=== PATIENT | female | born 1950 | race Caucasian/White ===

== ENCOUNTER → 2021-08-01 | Outpatient (CLI) | payer MEDICARE | END | disposition home or self-care (01) | LOC: LAB SHORT 11:40 → LAB 11:40 | DX: R30.9 Painful micturition, unspecified (principal) | CPT/HCPCS: 87077; 87086; 87186 ==

== ENCOUNTER → 2022-07-25 | Outpatient (CLI) | payer MEDICARE | LOC: LAB 17:27 → LAB SHORT 17:27 | DX: R30.0 Dysuria (principal) | CPT/HCPCS: 87077; 87086; 87186 ==

== ENCOUNTER → 2023-02-27 | Outpatient (CLI) | payer MEDICARE ==
[2023-02-27 15:07] LABS: Source, Urine Clean Catch
[2023-02-27 18:31] LABS: Appearance, Urine Hazy (Clear); Bilirubin, Urine Neg (Neg); Blood, Urine Neg (Neg); Color, Urine Yellow (P-Yellow); Glucose Qualitative, Urine 4+ (Neg); Ketones, Urine Neg (Neg); Leukocyte Esterase, Urine 1+ (Neg); Nitrite, Urine Pos (Neg); Protein, Urine 1+ (Neg); Specific Gravity, Urine 1.015 (1.003-1.022); Urobilinogen, Urine NORM (Normal)
[2023-02-27 19:31] LABS: Bacteria Many /hpf; Red Blood Cells, Urine 0-2 /hpf (0-2); Squamous Epithelial Cells Few /hpf (Few)
== END ==
LOC: LAB 13:46 → LAB SHORT 13:46
PROVIDERS: Student in an Organized Health Care Education/Training Program
DX: E11.42 Type 2 diabetes mellitus with diabetic polyneuropathy (principal)
CPT/HCPCS: 81001; 82043

== ENCOUNTER 2023-03-31 15:57 | Emergency (ER) | payer MEDICARE ==
[~2023-03-31] VITALS: Ht 152.4 cm; Wt 77.1 kg
[2023-03-31 17:00] LABS: Base Excess Venous -5.1 mmol/L; Bicarbonate Venous 20.5 mmol/L (24.0-30.0); PCO2 Venous 39.1 mmHg (38-42); pH Blood Venous 7.33 (7.34-7.37)
[2023-03-31 17:03] LABS: BASOPHILS ABSOLUTE AUTO 0.03 K/mm3 (0.00-0.23); BASOPHILS PERCENT AUTO 0 % (0-2); EOSINOPHILS ABSOLUTE AUTO 0.09 K/mm3 (0.00-0.68); EOSINOPHILS PERCENT AUTO 1 % (0-6); Hematocrit 35.9 % (33.0-51.0); Hemoglobin 12.2 g/dL (11.5-16.0); IMMATURE GRAN ABSOLUTE AUTO 0.02 K/mm3 (0.00-0.10); IMMATURE GRAN PERCENT AUTO 0 % (0-1); LYMPHOCYTES ABSOLUTE AUTO 1.89 K/mm3 (0.84-5.20); LYMPHOCYTES PERCENT AUTO 24 % (21-46); MONOCYTES ABSOLUTE AUTO 0.91 K/mm3 (0.16-1.47); MONOCYTES PERCENT AUTO 11 % (4-13); Mean Corpuscular HGB 31.3 pg (26.0-34.0); Mean Corpuscular Volume 92 fL (80-100); Mean Platelet Volume 10.5 fL (9.1-12.4); NEUTROPHILS ABSOLUTE AUTO 5.01 K/mm3 (1.96-9.15); NEUTROPHILS PERCENT AUTO 63 % (41-73); Platelet Count 240 K/mm3 (150-400); RDW Coefficient Variation 13.2 % (11.7-14.2); RDW Standard Deviation 44.5 fL (35.1-46.3); White Blood Cell Count 7.95 K/mm3 (4.00-11.30)
[2023-03-31] MEDS ORDERED: EZETIMIBE10 M6 PO (17:27)
[2023-03-31] MEDS ORDERED: METOPROLOL SUCC25 MG (17:28)
[2023-03-31] MEDS ORDERED: METF500 PO (17:28)
[2023-03-31] MEDS ORDERED: LIPITOR80 MG PO (17:28)
[2023-03-31] MEDS ORDERED: Neurontin800 MG PO (17:28)
[2023-03-31] MEDS ORDERED: OMEPRAZOLE MAGN20 M1 PO (17:29)
[2023-03-31] MEDS ORDERED: FEROSUL325 M1 PO (17:29)
[2023-03-31] MEDS ORDERED: HYDHCL25 (17:29)
[2023-03-31] MEDS ORDERED: GLIP5 PO (17:30)
[2023-03-31] MEDS ORDERED: FENO160 PO (17:30)
[2023-03-31 17:38] LABS: Albumin, Blood 3.7 g/dL (3.4-5.0); Albumin/Globulin Ratio 0.8 (0.8-1.8); Bilirubin, Total 0.5 mg/dL (0.1-1.0); Bun/Creatinine Ratio 25.4 (12.0-20.0); Calcium, Blood 9.4 mg/dL (8.5-10.1); Creatinine, Blood 1.3 mg/dL (0.40-1.00); Globulin, Blood 4.6 g/dL (2.2-4.0); Potassium, Blood 5.1 mmol/L (3.5-5.5); Total Protein, Blood 8.3 g/dL (6.4-8.2)
[2023-03-31 18:02] LABS: Source, Urine Clean Catch
[2023-03-31 18:08] LABS: Bilirubin, Urine Neg (Neg); Blood, Urine 2+ (Neg); Color, Urine Yellow (P-Yellow); Glucose Qualitative, Urine 4+ (Neg); Ketones, Urine Neg (Neg); Leukocyte Esterase, Urine 2+ (Neg); Nitrite, Urine Neg (Neg); Protein, Urine 2+ (Neg); Specific Gravity, Urine 1.015 (1.003-1.022); Urobilinogen, Urine NORM (Normal)
[2023-03-31 18:17] LABS: Appearance, Urine Hazy (Clear)
[2023-03-31 18:18] LABS: Bacteria Many /hpf; Red Blood Cells, Urine 0-2 /hpf (0-2); Squamous Epithelial Cells Rare /hpf (Few); White Blood Cells, Urine 50-100 /hpf (0-5)
[2023-03-31] MEDS ORDERED: CEPH500 PO (21:11)
[2023-03-31 22:00] VITALS: BP 141/91
== END 2023-03-31 22:06 | disposition home or self-care (01) ==
LOC: ER 15:57
PROVIDERS: Physician Assistant
DX: E11.65 Type 2 diabetes mellitus with hyperglycemia (principal); N39.0 Urinary tract infection, site not specified; Z79.84 Long term (current) use of oral hypoglycemic drugs; Z79.899 Other long term (current) drug therapy; Z88.2 Allergy status to sulfonamides; Z88.8 Allergy status to other drugs, medicaments and biological substances
CPT/HCPCS: 80053; 81001; 82803; 82947; 85025; 87077; 87086; 87186; 96360; 99283-25; A9270; J7030

== ENCOUNTER → 2023-09-24 | Outpatient (CLI) | payer MEDICARE ==
[~2023-09-24] MED LIST: CEPH500 PO; EZETIMIBE10 M6 PO; FENO160 PO; FEROSUL325 M1 PO; GLIP5 PO; HYDHCL25; LIPITOR80 MG PO; METF500 PO; METOPROLOL SUCC25 MG; Neurontin800 MG PO; OMEPRAZOLE MAGN20 M1 PO
[2023-09-24 13:03] LABS: Creatinine Urine 56.3 mg/dL (27.00-270.00); Protein, Urine Quantitative 19.3 mg/dL (0.0-11.9)
== END | disposition home or self-care (01) ==
LOC: LAB SHORT 10:40 → LAB 10:40 → EDSTATUS 09-21 17:45 → LAB FUT 09-21 17:45
PROVIDERS: Internal Medicine Nephrology
DX: N18.30 Chronic kidney disease, stage 3 unspecified (principal); D63.1 Anemia in chronic kidney disease; D75.1 Secondary polycythemia; N25.81 Secondary hyperparathyroidism of renal origin; E55.9 Vitamin D deficiency, unspecified; D51.8 Other vitamin B12 deficiency anemias; D52.8 Other folate deficiency anemias; D50.9 Iron deficiency anemia, unspecified; R76.9 Abnormal immunological finding in serum, unspecified; R94.6 Abnormal results of thyroid function studies
CPT/HCPCS: 81050; 82043; 82570; 84156

== ENCOUNTER → 2024-01-20 | Outpatient (CLI) | payer MEDICARE | LOC: LAB SHORT 19:24 → LAB 19:24 | DX: N39.0 Urinary tract infection, site not specified (principal); R31.9 Hematuria, unspecified | CPT/HCPCS: 87077; 87086; 87186 ==

== ENCOUNTER → 2024-03-11 | Outpatient (CLI) | payer MEDICARE | LOC: LAB 13:38 → LAB SHORT 13:38 | DX: E11.42 Type 2 diabetes mellitus with diabetic polyneuropathy (principal); E53.8 Deficiency of other specified B group vitamins; Z79.4 Long term (current) use of insulin; R53.83 Other fatigue | CPT/HCPCS: 82043 ==